=== PATIENT | male | born 1970 | race Hispanic/Latino ===

== ENCOUNTER 2021-01-21 08:00 | Emergency (ER) | payer BC, OTHER ==
[2021-01-21] MEDS ORDERED: TETANUS/DIPHTHERIA TOXOID [ADULT] 0.5 ML VIAL IM ONE (08:47)
[2021-01-21] MEDS ORDERED: LIDOCAINE HCL 1% 20 ML VIAL ONE (09:20)
== END 2021-01-21 10:12 | disposition home or self-care (01) ==
LOC: EDH 08:00
DX: S02.2XXA Fracture of nasal bones, initial encounter for closed fracture (principal); S01.21XA Laceration without foreign body of nose, initial encounter; I10 Essential (primary) hypertension; Z72.0 Tobacco use; W22.8XXA Striking against or struck by other objects, initial encounter; Y93.89 Activity, other specified; Y92.89 Other specified places as the place of occurrence of the external cause; Y99.8 Other external cause status
CPT/HCPCS: 12011; 70486; 90471; 90714